=== PATIENT | female | born 1990 | race Caucasian/White ===

== ENCOUNTER 2022-03-09 07:21 | Inpatient (IN) | payer BC ==
[~2022-03-09] VITALS: Ht 162.6 cm; Wt 61.4 kg
[2022-03-15] VITALS (16 sets, daily range): BP systolic 98–130; BP diastolic 59–89; PULSE 58–98; TEMP 97.7–98.3
[2022-03-15] MEDS ORDERED: PRENATAL TABLET PO (11:32)
[2022-03-15 11:57] LABS: BASO % 0.4 % (0.0-2.0); EOS # 0.1 K/mm3 (0.0-0.7); EOS % 0.9 % (0.0-4.0); GRAN # 7.6 K/mm3 (1.4-6.5); GRAN % 70.4 % (42.2-75.2); HEMATOCRIT 34.8 % (37.0-47.0); HEMOGLOBIN 11.5 g/dl (12.5-16.0); LYMPH # 2.1 K/mm3 (1.2-3.4); LYMPH % 19.6 % (20.0-51.0); MEAN CELL VOLUME 80 fl (80.0-100.0); MEAN CORPUSCULAR HEMOGLOBIN 26 pg (27-31); MEAN CORPUSCULAR HGB CONC 33 g/dl (33.0-37.0); MEAN PLATELET VOLUME 11.7 fl (7.4-10.4); MONO # 0.9 K/mm3 (0.1-0.6); MONO % 8.3 % (1.7-9.3); PLATELET COUNT 239 K/mm3 (130-400); RED BLOOD COUNT 4.37 M/mm3 (4.10-5.30); REDCELL DISTRIBUTION WIDTH-CV 14.2 % (11.5-14.5)
[2022-03-16 00:30] VITALS: BP 114/72; PULSE 78; TEMP 97.9
[2022-03-16 07:34] VITALS: BP 108/82; PULSE 68; TEMP 98.6
--- NOTE | 2022-03-16 08:56 | NUR ---
Initial visit; Patient and her mother thanked Air Intelligence Officer for offering congratulations for the of her son. Air Intelligence Officer inquired as to whether patient's stay has been a good one to which she commented that it has been and wished [employer] Officer a good day as well.
--- NOTE | 2022-03-16 13:45 | NUR ---
PT IV REMOVED BY RN. PT TOLERATED WELL. NO REDNESS, EDEMA OR DRAINAGE NOTED. PT OOB TO SHOWER. PT ASSISTED BY RN TO TAKE OFF ADBOMINAL DRESSING. PT TOLERATED WELL. 1410- PT BACK IN BED AFTER SHOWER. ABDONIMAL INSCISION CLEAN, DRY, INTACT, AND WELL APPROXIMATED. CARE INSTRUCTIONS GIVEN TO PT. PT VERBALIZED UNDERSTANDING. CARE PLAN UPDATED.
[2022-03-16] MEDS ORDERED: PERCOCET 325 MG1 TA2 PO (16:36)
[2022-03-16] MEDS ORDERED: MOTRIN 800800 MG/TAB PO (16:36)
[2022-03-16 18:00] VITALS: BP 102/68; PULSE 68; TEMP 98.2
[2022-03-16 20:10] VITALS: BP 123/80; PULSE 90; TEMP 98.3
[2022-03-17 08:46] VITALS: BP 116/66; PULSE 64; TEMP 97.3
== END 2022-03-17 10:50 | disposition home or self-care (01) | DRG 788 ==
LOC: OB 03-15 07:20
PROVIDERS: ADMIT Obstetrics & Gynecology
PROC: 10D00Z1 Extraction of Products of Conception, Low, Open Approach (ICD-10-PCS; principal; 2022-03-15)
DX: O34.211 Maternal care for low transverse scar from previous cesarean delivery (principal); O48.0 Post-term pregnancy; Z3A.40 40 weeks gestation of pregnancy; Z37.0 Single live birth
CPT/HCPCS: J0690; J1100; J1885; J2370; J2405; J2590; J7120